=== PATIENT | female | born 1970 | race Asian ===

== ENCOUNTER 2016-08-14 11:43 | Outpatient (CLI) | payer BC | END 2016-08-14 11:44 | disposition home or self-care (01) | DX: Z12.31 Encounter for screening mammogram for malignant neoplasm of breast (principal) ==

== ENCOUNTER 2016-08-21 06:11 | Inpatient (IN) | payer BC ==
[2016-08-21] MEDS ORDERED: ceFAZolin 2 GM/50 ML 50 ML IV ONE (06:26)
[2016-08-21] MEDS ORDERED: LACTATED RINGERS 1,000 ML IV ONE ×6 (06:44→13:51)
[2016-08-21] MEDS ORDERED: BUPIVACAINE 0.25%-EPI 1:200000 PF 30 ML VIAL SUBQ ONE ×5 (08:44)
[2016-08-21] MEDS ORDERED: ceFAZolin 1 GM VIAL IV ONE (09:00)
[2016-08-21] MEDS ORDERED: PROPOFOL 200 MG/20 ML VIAL IVP ONE (09:00)
[2016-08-21] MEDS ORDERED: ACETAMINOPHEN 1,000 MG/100 ML VIAL IV ONE (09:00)
[2016-08-21] MEDS ORDERED: LIDOCAINE-MPF 2% 5 ML VIAL IM ONE (09:00)
[2016-08-21] MEDS ORDERED: ONDANSETRON 4 MG/2 ML VIAL IVP ONE (09:00)
[2016-08-21] MEDS ORDERED: KETOROLAC 30 MG/ML VIAL IVP ONE (09:00)
[2016-08-21] MEDS ORDERED: HYDROmorphone 1 MG/ML SYRINGE IVP ONE (09:00)
[2016-08-21] MEDS ORDERED: FUROSEMIDE 40 MG/4 ML VIAL IVP ONE (09:00)
[2016-08-21] MEDS ORDERED: fentaNYL 250 MCG/5 ML VIAL IVP ONE (09:00)
[2016-08-21] MEDS ORDERED: ROCURONIUM 50 MG/5 ML VIAL IVP ONE (09:00)
[2016-08-21] MEDS ORDERED: MIDAZOLAM 2 MG/2 ML VIAL IVP ONE (09:00)
[2016-08-21] MEDS ORDERED: DEXAMETHASONE 4 MG/ML VIAL IVP ONE (09:00)
[2016-08-21] MEDS ORDERED: ESTROGENS, CONJUGATED CREAM 30 GM TUBE VG ONE (10:29)
[2016-08-21] MEDS ORDERED: oxyCODONE 5 MG TABLET PO PRN (15:11)
[2016-08-21] MEDS ORDERED: ONDANSETRON 4 MG/2 ML VIAL IVP PRN (15:11)
[2016-08-21] MEDS ORDERED: PROMETHAZINE 25 MG/1 ML VIAL ONE (15:37)
[2016-08-21] MEDS: ceFAZolin 1 GM in SODIUM CHLORIDE 0.9% MINIBAG 100 ML IV SCH ×2 (16:59→23:58)
[2016-08-21] MEDS: KETOROLAC 30 MG/ML VIAL IVP SCH ×2 (17:00→22:25)
[2016-08-21] MEDS: LACTATED RINGERS 1,000 ML IV SCH (17:00)
[2016-08-21] MEDS: DOCUSATE SODIUM 100 MG CAPSULE PO SCH (21:13)
[2016-08-21] MEDS: SIMETHICONE CHEW 80 MG TABLET PO SCH (21:13)
[2016-08-22] MEDS: KETOROLAC 30 MG/ML VIAL IVP SCH ×3 (05:43→17:19)
[2016-08-22] MEDS: SIMETHICONE CHEW 80 MG TABLET PO SCH ×2 (05:43→13:07)
[2016-08-22] MEDS: DOCUSATE SODIUM 100 MG CAPSULE PO SCH (08:01)
[2016-08-22] MEDS: ceFAZolin 1 GM in SODIUM CHLORIDE 0.9% MINIBAG 100 ML IV SCH (08:01)
[2016-08-22] MEDS: LACTATED RINGERS 1,000 ML IV SCH (08:14)
[2016-08-22] MEDS ORDERED: diphenhydrAMINE 25 MG CAPSULE PO ONE (11:00)
[2016-08-22] MEDS ORDERED: LIDOCAINE JELLY 2% 5 ML TUBE TOP ONE (12:25)
== END 2016-08-22 18:05 | disposition home or self-care (01) | DRG 743 ==
PROC: 0TSD0ZZ Reposition Urethra, Open Approach (ICD-10-PCS; principal; 2016-08-21 07:30)
PROC: 0TJB8ZZ Inspection of Bladder, Via Natural or Artificial Opening Endoscopic (ICD-10-PCS; principal; 2016-08-21 07:30)
PROC: 0UT7FZZ Resection of Bilateral Fallopian Tubes, Via Natural or Artificial Opening With Percutaneous Endoscopic Assistance (ICD-10-PCS; principal; 2016-08-21 07:30)
PROC: 0UT9FZZ Resection of Uterus, Via Natural or Artificial Opening With Percutaneous Endoscopic Assistance (ICD-10-PCS; principal; 2016-08-21 07:30)
DX: N81.2 Incomplete uterovaginal prolapse (principal); N39.3 Stress incontinence (female) (male); R33.9 Retention of urine, unspecified

== ENCOUNTER 2016-10-02 08:00 | Outpatient (CLI) | payer BC | END 2016-10-02 08:01 | disposition home or self-care (01) | DX: R82.99 Other abnormal findings in urine (principal) ==

== ENCOUNTER 2016-10-08 08:00 | Outpatient (CLI) | payer BC | END 2016-10-08 23:59 | disposition home or self-care (01) | DX: Z48.89 Encounter for other specified surgical aftercare (principal) ==

== ENCOUNTER 2016-10-15 09:41 | Outpatient (CLI) | payer BC | END 2016-10-15 09:42 | disposition home or self-care (01) | DX: I10 Essential (primary) hypertension (principal) ==

== ENCOUNTER 2017-07-24 14:01 | Outpatient (CLI) | payer BC ==
[2017-07-24 13:54] LABS: BASOPHILS % (AUTO) 0.8 %; EOSINOPHILS # (AUTO) 0.1 10^3/uL (0.0-0.7); EOSINOPHILS % (AUTO) 1.7 %; HCT - HEMATOCRIT 41.4 % (37.0-47.0); HGB - HEMOGLOBIN 13.8 g/dL (12.0-16.0); LYMPHOCYTES # (AUTO) 1.1 10^3/uL (1.5-3.5); LYMPHOCYTES % (AUTO) 23.1 %; MEAN CORPUSCULAR HEMOGLOBIN 30.2 pg (27.0-31.0); MEAN CORPUSCULAR HGB CONC 33.2 g/dL (32.0-36.0); MONOCYTES # (AUTO) 0.5 10^3/uL (0.0-1.0); MONOCYTES % (AUTO) 10.7 %; NEUTROPHILS # (AUTO) 3.1 10^3/uL (1.5-6.6); NEUTROPHILS % (AUTO) 63.7 %; NUCLEATED RED BLOOD CELLS AUTO 0.1 /100WBC; RED BLOOD COUNT 4.55 10^6/uL (4.20-5.40); RED CELL DISTRIBUTION WIDTH 12.8 % (12.0-15.0); UNCORRECTED WHITE BLOOD COUNT 4.9 x10^3/uL; WHITE BLOOD COUNT 4.9 x10^3/uL (4.8-10.8)
[2017-07-24 14:36] LABS: ALBUMIN/GLOBULIN RATIO 0.9 (1.0-2.2); BILIRUBIN,TOTAL 0.5 mg/dL (0.2-1.0); BUN - BLOOD UREA NITROGEN 14 mg/dL (6-20); CALCIUM 8.8 mg/dL (8.5-10.3); CARBON DIOXIDE - CO2 28 mmol/L (21-32); CHLORIDE 102 mmol/L (101-111); CHOL/HDL RATIO 3.2 (<4.4); CHOLESTEROL 170 mg/dL; CREATININE 0.5 mg/dL (0.4-1.0); GFR - MDRD 132 (>89); GLUCOSE 97 mg/dL (70-100); HDL CHOLESTEROL 53 mg/dL; LDL/HDL RATIO 1.9 (<4.4); POTASSIUM 3.9 mmol/L (3.5-5.0); SODIUM 138 mmol/L (135-145); TOTAL PROTEIN 7.9 g/dL (6.7-8.2); TRIGLYCERIDES 69 mg/dL; VLDL CHOLESTEROL 14 mg/dL
[2017-07-24 15:18] LABS: HEMOGLOBIN A1C 0.52 g/dL
== END 2017-07-24 14:02 | disposition home or self-care (01) ==
LOC: LAB.WCP 14:01
PROVIDERS: ATTEND Family Medicine
DX: Z00.00 Encounter for general adult medical examination without abnormal findings (principal); R73.01 Impaired fasting glucose
CPT/HCPCS: 36415; 80053; 80061; 83036; 84443; 85025

== ENCOUNTER 2017-08-05 15:00 | Outpatient (CLI) | payer BC ==
[2017-08-05 19:27] LABS: CRP - C-REACTIVE PROTEIN < 1.0 mg/dL (0-1.0)
[2017-08-05 19:28] LABS: RHEUMATOID FACTOR NEGATIVE (Negative); URIC ACID 3.6 mg/dL (2.6-7.2)
== END 2017-08-05 15:01 | disposition home or self-care (01) ==
LOC: LAB.WCP 15:00
PROVIDERS: ATTEND Family Medicine
DX: M25.50 Pain in unspecified joint (principal)
CPT/HCPCS: 36415; 84550; 85651; 86140; 86200; 86430

== ENCOUNTER 2018-07-23 07:00 | Outpatient (CLI) | payer BC ==
[2018-07-23 13:30] LABS: BASOPHILS % (AUTO) 0.4 %; EOSINOPHILS # (AUTO) 0.1 10^3/uL (0.0-0.7); EOSINOPHILS % (AUTO) 2.3 %; HGB - HEMOGLOBIN 13.9 g/dL (12.0-16.0); LYMPHOCYTES # (AUTO) 1.5 10^3/uL (1.5-3.5); LYMPHOCYTES % (AUTO) 29.1 %; MEAN CORPUSCULAR HEMOGLOBIN 31.2 pg (27.0-31.0); MEAN CORPUSCULAR HGB CONC 34.1 g/dL (32.0-36.0); MEAN CORPUSCULAR VOLUME 91.6 fL (81.0-99.0); MEAN PLATELET VOLUME 8.1 fL (7.9-10.8); MONOCYTES # (AUTO) 0.3 10^3/uL (0.0-1.0); NEUTROPHILS # (AUTO) 3.3 10^3/uL (1.5-6.6); NEUTROPHILS % (AUTO) 62.2 %; PLT - PLATELET COUNT 252 10^3/uL (130-450); RED BLOOD COUNT 4.44 10^6/uL (4.20-5.40); RED CELL DISTRIBUTION WIDTH 12.7 % (12.0-15.0); WHITE BLOOD COUNT 5.3 x10^3/uL (4.8-10.8)
[2018-07-23 14:21] LABS: ALBUMIN 3.8 g/dL (3.2-5.5); ALBUMIN/GLOBULIN RATIO 1.1 (1.0-2.2); ALKALINE PHOSPHATASE 48 IU/L (42-121); ALT ALANINE AMINOTRANSFERASE < 10 IU/L (10-60); AST ASPARTATE AMINOTRANSFERASE 15 IU/L (10-42); BILIRUBIN,TOTAL 0.4 mg/dL (0.2-1.0); BUN - BLOOD UREA NITROGEN 13 mg/dL (6-20); CALCIUM 8.4 mg/dL (8.5-10.3); CARBON DIOXIDE - CO2 28 mmol/L (21-32); CHLORIDE 103 mmol/L (101-111); CHOL/HDL RATIO 3.4 (<4.4); CHOLESTEROL 188 mg/dL; CREATININE 0.5 mg/dL (0.4-1.0); GFR - MDRD 131 (>89); GLUCOSE 91 mg/dL (70-100); HDL CHOLESTEROL 55 mg/dL; LDL CHOLESTEROL,CALCULATED 123 mg/dL; LDL/HDL RATIO 2.2 (<4.4); SODIUM 138 mmol/L (135-145); TOTAL PROTEIN 7.2 g/dL (6.7-8.2); VLDL CHOLESTEROL 10 mg/dL
[2018-07-23 16:44] LABS: HB2 TOTAL 14.9 g/dL; HEMOGLOBIN A1C 0.52 g/dL; HEMOGLOBIN A1C % 5.3 % (4.6-6.2)
== END 2018-07-23 23:59 | disposition home or self-care (01) ==
LOC: LAB.WCP 07:00
PROVIDERS: ATTEND Family Medicine
DX: Z00.00 Encounter for general adult medical examination without abnormal findings (principal); R73.01 Impaired fasting glucose
CPT/HCPCS: 36415; 80053; 80061; 83036; 83721; 84443; 85025

== ENCOUNTER 2019-05-19 11:58 | Outpatient (CLI) | payer BC ==
--- NOTE | 2019-05-19 15:01 | Mammography Report ---
Reason: LUMP IN RIGHT BREAST SUBAREOLAR Procedure Date: 05/19/2019 Accession Number: [id number] / [id number] Procedure: SONYA - Diagnostic Dig Bilat CPT Code: FULL RESULT: EXAM: Diagnostic Dig Bilat DATE: 05/19/2019 1:19 PM CLINICAL HISTORY: Diagnostic examination. Palpable lump in the right breast. TECHNIQUE: (B) - Bilateral CC, laterally exaggerated CC, MLO views were obtained. Right spot CC and spot MLO as well as ML images are obtained. Focused right breast ultrasound is performed. COMPARISON: 08/14/2016 through 07/24/2010. PARENCHYMAL PATTERN: (D) - The breast(s) demonstrate(s) heterogeneously dense fibroglandular parenchyma. FINDINGS: The right breast again demonstrates multiple partially obscured well demarcated isolated masses which appear isodense, the largest of these lumps in the retroareolar region of the right breast corresponds to the palpable marker. Focused right breast ultrasound of the retroareolar region is performed which demonstrates a wider than tall simple appearing cyst which measures 2.5 x 1.4 x 2.1 cm at the 10:00 position 3 cm from the nipple, typically benign. There are no suspicious masses, calcifications, or areas of distortion. IMPRESSION: Benign findings. BI-RADS category 2. RECOMMENDATION: (ANNUAL) - Recommend routine annual screening mammography. BI-RADS CATEGORY: (2) - Benign Findings. STANDARD QUALIFYING STATEMENTS: 1. This examination was not reviewed with the aid of Computer-Aided Detection (CAD). 2. A negative or benign imaging report should not preclude biopsy if clinically suspicious findings are present. 3. Dense breasts may obscure an underlying neoplasm. 4. This examination was reviewed with the aid of 3D breast imaging (tomosynthesis).
== END 2019-05-19 11:59 | disposition home or self-care (01) ==
LOC: DI 11:58
PROVIDERS: ATTEND Family Medicine
DX: N63.41 Unspecified lump in right breast, subareolar (principal); N60.01 Solitary cyst of right breast
CPT/HCPCS: 76642; 77066

== ENCOUNTER 2019-08-11 07:54 | Outpatient (CLI) | payer BC ==
[2019-08-11 12:46] LABS: BASOPHILS % (AUTO) 0.5 %; EOSINOPHILS # (AUTO) 0.1 10^3/uL (0.0-0.7); EOSINOPHILS % (AUTO) 2.9 %; HGB - HEMOGLOBIN 13.5 g/dL (12.0-16.0); LYMPHOCYTES # (AUTO) 1.3 10^3/uL (1.5-3.5); LYMPHOCYTES % (AUTO) 32.4 %; MEAN CORPUSCULAR HGB CONC 32.8 g/dL (32.0-36.0); MEAN CORPUSCULAR VOLUME 91.6 fL (81.0-99.0); MEAN PLATELET VOLUME 10.1 fL (7.9-10.8); MONOCYTES # (AUTO) 0.3 10^3/uL (0.0-1.0); MONOCYTES % (AUTO) 7.3 %; NEUTROPHILS # (AUTO) 2.3 10^3/uL (1.5-6.6); NEUTROPHILS % (AUTO) 56.7 %; PLT - PLATELET COUNT 265 10^3/uL (130-450); RED CELL DISTRIBUTION WIDTH 12.3 % (12.0-15.0); WHITE BLOOD COUNT 4.1 x10^3/uL (4.8-10.8)
[2019-08-11 12:56] LABS: ALBUMIN 3.9 g/dL (3.2-5.5); ALBUMIN/GLOBULIN RATIO 1.3 (1.0-2.2); ALKALINE PHOSPHATASE 64 IU/L (42-121); ALT ALANINE AMINOTRANSFERASE < 10 IU/L (10-60); AST ASPARTATE AMINOTRANSFERASE 16 IU/L (10-42); BILIRUBIN,TOTAL 0.9 mg/dL (0.2-1.0); BUN - BLOOD UREA NITROGEN 14 mg/dL (6-20); CALCIUM 8.6 mg/dL (8.5-10.3); CARBON DIOXIDE - CO2 29 mmol/L (21-32); CHLORIDE 104 mmol/L (101-111); CHOL/HDL RATIO 3.3 (<4.4); CHOLESTEROL 197 mg/dL; CREATININE 0.4 mg/dL (0.4-1.0); GFR - MDRD 168 (>89); GLUCOSE 91 mg/dL (70-100); HDL CHOLESTEROL 59 mg/dL; LDL CHOLESTEROL,CALCULATED 124 mg/dL; LDL/HDL RATIO 2.1 (<4.4); SODIUM 139 mmol/L (135-145); TOTAL PROTEIN 6.9 g/dL (6.7-8.2); VLDL CHOLESTEROL 14 mg/dL
[2019-08-11 13:52] LABS: HB2 TOTAL 13.7 g/dL; HEMOGLOBIN A1C 0.53 g/dL; HEMOGLOBIN A1C % 5.7 % (4.6-6.2)
== END 2019-08-11 23:59 | disposition home or self-care (01) ==
LOC: LAB.WCP 07:54
PROVIDERS: ATTEND Family Medicine
DX: L50.8 Other urticaria (principal); R42 Dizziness and giddiness; R73.01 Impaired fasting glucose; G47.00 Insomnia, unspecified
CPT/HCPCS: 36415; 80053; 80061; 83036; 83721; 84443; 85025

== ENCOUNTER 2021-04-05 07:31 | Outpatient (CLI) | payer BC ==
[2021-04-05 11:42] LABS: BASOPHILS % (AUTO) 0.7 %; EOSINOPHILS # (AUTO) 0.1 10^3/uL (0.0-0.7); EOSINOPHILS % (AUTO) 3.2 %; HCT - HEMATOCRIT 44.5 % (37.0-47.0); HGB - HEMOGLOBIN 14.5 g/dL (12.0-16.0); LYMPHOCYTES # (AUTO) 1.6 10^3/uL (1.5-3.5); MEAN CORPUSCULAR HGB CONC 32.6 g/dL (32.0-36.0); MEAN CORPUSCULAR VOLUME 91.9 fL (81.0-99.0); MEAN PLATELET VOLUME 11.1 fL (7.9-10.8); MONOCYTES # (AUTO) 0.5 10^3/uL (0.0-1.0); MONOCYTES % (AUTO) 12.3 %; NEUTROPHILS % (AUTO) 45.6 %; PLT - PLATELET COUNT 237 10^3/uL (130-450); RED BLOOD COUNT 4.84 10^6/uL (4.20-5.40); RED CELL DISTRIBUTION WIDTH 12.5 % (12.0-15.0); WHITE BLOOD COUNT 4.3 x10^3/uL (4.8-10.8)
[2021-04-05 12:28] LABS: ALBUMIN 4.2 g/dL (3.2-5.5); ALBUMIN/GLOBULIN RATIO 1.2 (1.0-2.2); ALKALINE PHOSPHATASE 57 IU/L (42-121); ALT ALANINE AMINOTRANSFERASE 10 IU/L (10-60); AST ASPARTATE AMINOTRANSFERASE 18 IU/L (10-42); BILIRUBIN,TOTAL 0.8 mg/dL (0.2-1.0); BUN - BLOOD UREA NITROGEN 13 mg/dL (6-20); CALCIUM 9.4 mg/dL (8.5-10.3); CARBON DIOXIDE - CO2 29 mmol/L (21-32); CHLORIDE 100 mmol/L (101-111); CHOL/HDL RATIO 3.9 (<4.4); CHOLESTEROL 214 mg/dL; CREATININE 0.5 mg/dL (0.4-1.0); GFR - MDRD 130 (>89); GLUCOSE 103 mg/dL (70-100); HDL CHOLESTEROL 55 mg/dL; LDL CHOLESTEROL,CALCULATED 146 mg/dL; LDL/HDL RATIO 2.7 (<4.4); POTASSIUM 4.2 mmol/L (3.5-5.0); SODIUM 139 mmol/L (135-145); TOTAL PROTEIN 7.7 g/dL (6.7-8.2); TRIGLYCERIDES 66 mg/dL; VLDL CHOLESTEROL 13 mg/dL
[2021-04-05 12:57] LABS: THYROID STIMULATING HORMONE 2.11 uIU/mL (0.34-5.60)
== END 2021-04-05 23:59 | disposition home or self-care (01) ==
LOC: LAB.WCP 07:31
PROVIDERS: ATTEND Family Medicine
DX: Z00.00 Encounter for general adult medical examination without abnormal findings (principal); Z13.220 Encounter for screening for lipoid disorders; Z13.29 Encounter for screening for other suspected endocrine disorder
CPT/HCPCS: 36415; 80053; 80061; 83721; 84443; 85025

== ENCOUNTER 2021-04-23 08:00 | Outpatient (CLI) | payer BC ==
[2021-04-23 18:33] LABS: FECAL OCCULT BLOOD (FIT) NEGATIVE (NEGATIVE)
== END 2021-04-23 23:59 | disposition home or self-care (01) ==
LOC: LAB 08:00
PROVIDERS: ATTEND Family Medicine
DX: Z12.11 Encounter for screening for malignant neoplasm of colon (principal)
CPT/HCPCS: 82274

== ENCOUNTER 2021-05-24 12:34 | Outpatient (CLI) | payer BC ==
--- NOTE | 2021-05-24 14:17 | Ultrasound Report ---
PROCEDURE: Head or Neck Soft Tissue INDICATIONS: THYROID NODULE TECHNIQUE: Real-time scanning was performed of the thyroid gland, with image documentation. COMPARISON: None FINDINGS: Right: Thyroid lobe measures 5.3 x 1.1 x 1.3 cm, and is relatively homogeneous in echotexture, with a single focal nodule. Left: Thyroid lobe measures 4.3 x 1.0 x 1.4 cm, and is relatively homogenous in echotexture without focal nodule. Isthmus: 2.6 mm thick. Nodule number: 1 Location: Right lower pole Size: 0.8 x 0.5 x 0.4 cm. Composition: Solid Echogenicity: Hypoechoic Shape: wider than tall. Margins: Smooth Echogenic foci: None Total points: 4 ACR TI-RADS category: Moderately suspicious IMPRESSION: There is a single moderately suspicious thyroid nodule measuring 0.[address]ame ter. Based on recommendations below, no further follow-up is suggested at the current time. ACR TI-RADS definitions and recommendations: TI-RADS 1 (benign): 0 points. FNA not needed. TI-RADS 2 (not suspicious): 2 points. FNA not needed. TI-RADS 3 (mildly suspicious): 3 points. "FNA if 2.5 cm or larger, follow up if 1.5 cm or larger (at 1, 3, and 5 years). TI-RADS 4 (moderately suspicious): 4-6 points. "FNA if 1.5 cm or larger, follow up if 1 cm or larger (at 1, 2, 3, and 5 years). TI-RADS 5 (highly suspicious): 7 points or more. "FNA if 1 cm or larger, follow up if 0.5 cm or larger (every year for 5 years). Reviewed by: Valente Bradford MD on 05/24/2021 2:15 PM PDT Approved by: Valente Bradford MD on 05/24/2021 2:15 PM PDT Station ID: [id number]
== END 2021-05-24 12:35 | disposition home or self-care (01) ==
LOC: DI 12:34
PROVIDERS: ATTEND Family Medicine
DX: E04.1 Nontoxic single thyroid nodule (principal)

== ENCOUNTER 2022-04-23 10:00 | Outpatient (CLI) | payer BC ==
[2022-04-23 18:27] LABS: FECAL OCCULT BLOOD (FIT) NEGATIVE (NEGATIVE)
== END 2022-04-23 23:59 | disposition home or self-care (01) ==
LOC: LAB.N 10:00
PROVIDERS: ATTEND Nurse Practitioner
DX: Z12.11 Encounter for screening for malignant neoplasm of colon (principal)
CPT/HCPCS: 82274

== ENCOUNTER 2022-06-26 07:59 | Outpatient (CLI) | payer BC ==
--- NOTE | 2022-07-01 10:56 | Mammography Report ---
UNILATERAL LEFT DIGITAL DIAGNOSTIC MAMMOGRAM 3D/2D WITH SPOT COMPRESSION: 06/26/2022 CLINICAL: Patient returns today to evaluate a focal asymmetry in the left breast. Comparison is made to exams dated: 05/17/2022 mammogram, 05/19/2019 mammogram - [facility], 08/14/2016 mammogram - [facility], 02/28/2015 mammogram, and 06/03/2013 m ammogram - [facility]. The left breast is extremely dense, which lowers the sensitivity of mammography (category d />75% gla ndular tissue). There is an asymmetry with rim calcifications in the left breast at 7 o'clock anterior depth. This i s seen in additional views. No other significant masses or calcifications are seen in the breast. IMPRESSION: BENIGN The asymmetry in the left breast is consistent with an oil cyst and is benign. There is no mammographic evidence of malignancy. Return to annual mammogram screening schedule is rec ommended. Based on Tyrer-Cuzick model (a risk assessment model), the patient's lifetime risk is 21.1% and her 1 0 year risk is 6.0%. If a patient has an elevated risk, a more comprehensive evaluation should be con sidered and/or a referral to a genetic counselor. The [place] [employer], [place] [employer], and NCCN Guidelines advise the consideration of Breast MRI as an adjunct to screening mammog yoly in patients whose "Lifetime risk to develop breast cancer" is 20% or higher. This exam was interpreted at Station ID: [id number]. NOTE: For mammograms, a report in lay terms will be sent to the patient. Approximately 15% of breast malignancies will not be visualized mammographically. In the management of a palpable breast mass, a negative mammogram must not discourage biopsy of a clinically suspicious lesion. Electronically Signed By: Annemarie neal/:06/26/2022 11:35:48 ACR BI-RADS Category 2: Benign Finding(s) 3342F PARENCHYMAL PATTERN: (VD) - The breast(s) demonstrate(s) extremely dense parenchyma, limiting the sen sitivity of mammography. BI-RADS CATEGORY: (2) - 2 Mammogram [id number] return to screening LATERALITY: (B)
== END 2022-06-26 08:00 | disposition home or self-care (01) ==
LOC: DI 07:59
PROVIDERS: ATTEND Nurse Practitioner
DX: R92.8 Other abnormal and inconclusive findings on diagnostic imaging of breast (principal)

== ENCOUNTER 2023-07-30 08:00 | Outpatient (CLI) | payer BC ==
[2023-07-30 18:51] LABS: FECAL OCCULT BLOOD (FIT) NEGATIVE (NEGATIVE)
== END 2023-07-30 23:59 | disposition home or self-care (01) ==
LOC: LAB.R 08:00
PROVIDERS: ATTEND Nurse Practitioner
DX: Z12.11 Encounter for screening for malignant neoplasm of colon (principal)
CPT/HCPCS: 82274

== ENCOUNTER 2023-09-23 12:51 | Outpatient (CLI) | payer BC ==
--- NOTE | 2023-09-23 13:26 | Sleep Patient Instructions ---
Sleep Center Visit Summary - Patient Visit Information Reason for Visit: Initial consult for evaluation of sleep disordered breathing and other sleep issues. - Patient Instructions Instructions Attached: Sleep Study, Sleep Study Home Monitor Additional Instructions: You will be completing a sleep study, either an in-lab polysomnography (PSG) or home sleep study (HST). You will follow-up in the sleep care office after the sleep study is completed to hear the results and talk about therapy, if needed. You will be called by our office staff to schedule this appointment, but you may contact us with any questions. - Clinic Information Contact: [facility] [address] [place] [id number] [email or web address] T: [phone]
--- NOTE | 2023-09-23 13:34 | SLEEP CARE CONSULTATION ---
Information from patient questionnaire entered by Charlie Mercado. I have reviewed and concur with the information entered by Charlie Mercado. This document represents the service I personally performed and the decisions made by me, Brittnee Leonard ARNP. History of Present Illness Service Date and Time: 09/23/2023 1251 Reason for Visit: New patient Chief Complaint: reports: Insomnia, Frequent awakenings at night Date of Onset: 15YRS Usual bedtime: 11PM Time it takes to fall asleep: 2HRS Snores at night: No Observed to quit breathing while asleep: No Sleeps alone due to snoring: No Number of times waking at night: 1 or more, sometimes does not sleep at all Reasons for waking at night: reports: Bathroom, Other (UNKNOWN). denies: Choking, Snoring, Gasping for air Toss, Turn, or Twitch while sleeping: Yes Recalls having dreams: No Usually gets out of bed at: 6AM Feels refreshed in the morning: No Morning headache: No Sleepy or fatigued during the day: Yes Ever fallen asleep while driving: No Takes day naps: No Dreams during day naps: No Prior sleep studies: No Additional HPI information: I had the pleasure of seeing JOSH GUPTA today regarding the possibility of her having a sleep disorder. She says Lithuanian is a second language but she feels she can understand it without need of an computer numeric control setter. She declined interpreting services. Her current complaints are frequent night awakenings and insomnia. She says she sometimes cannot sleep at all at night and this has been going on for 8-10 years at least. She can take an hour or so sometimes to go to sleep. She will then wake up for bathroom or other unknown reasons and sometimes she just lays in bed and cannot go back to sleep. She says her blood pressure has been being higher when she cannot sleep much at night. She is not currently being treated for hypertension. She says she did try a sleeping pill her doctor prescribed her but said it did not help her sleep. She has tried melatonin and it did not help her fall asleep more quickly either. She drinks sleepy tea but this also does not help. She does not wake up feeling refreshed and has some tiredness during the day. She does not take naps and states that no one has told her that she snores or has positive breathing in her sleep. - Parasomnia Symptoms Ever been unable to move upon waking from sleep: No Walks in sleep: No Talks in sleep: No Ever acted out dreams in sleep: No Ever felt weak in the knees when startled or emotional: No Bothered by creepy, crawly, restless sensations in legs: No Problems with memory or concentration: No Subjective Initial Erie Sleepiness Scale score: 10 (09/21/23) Past Medical History Past Medical History: reports: Other (BP going up and down but not on any medications; no other significant medical history) Social History The patient's occupation is a [employer]. Patient is and lives in [place]. Have you smoked in the past 12 months: No Alcohol use: No Caffeine use: Yes Caffeine amount and frequency: 2 A WEEK Family History Family history of sleep disordered breathing: No Allergies and Home Medications Known drug allergies: No Drug allergies reviewed: Yes Home medication list reviewed: Yes Allergy and home medication list: Allergies No Known Drug Allergies Allergy (Verified 09/18/23 17:08) Review of Systems Cardiovascular: reports: high blood pressure Gastrointestinal: denies: heartburn Neurological: denies: headaches Psychiatric: denies: anxiety, depression Ear/Nose/Throat: denies: tonsillectomy Endocrine: denies: thyroid disease Physical Exam Vital signs obtained and entered by: CHARLIE Simms MA Blood Pressure: 135/90 (RIGHT ARM) Cuff size: regular Heart Rate: 77 O2 Saturation: 99 Height: 4 ft 11.5 in Weight: 121 lb 3.2 oz Body Mass Index: 24.0 BMI Classification: Normal Neck circumference: 12 Mouth and throat: narrow oropharynx Soft palate: long Hard palate: normal Uvula: normal Uvula visualization: 25% Mallampati Class III Tongue: normal in size Tonsils: 1+ Neck: normal w/o lymphadenopathy or thyromegaly Heart: regular rate and rhythm Lungs: clear bilaterally Impression and Plan 1. Suspected Obstructive Sleep Apnea-Hypopnea Syndrome, as suggested by a history of frequent awakening during the night, unrefreshed sleep and insomnia. Narrow oropharynx and obesity are common predisposing factors for obstructive sleep apnea-hypopnea syndrome. I recommend proceeding to polysomnography to confirm the diagnosis and to assess severity. If the patient has significant sleep disordered breathing, a manual CPAP titration study will also be performed to find the optimal treatment pressure. I informed the patient of what the sleep studies involve and after some discussion, obtained agreement to proceed. The pathophysiology of obstructive sleep apnea-hypopnea syndrome was discussed with the patient and health risks of cardiovascular and cerebrovascular disease if not treated. Risks of drowsy driving discussed in detail and patient advised to avoid long distance driving and to sinker puller at the first sign of drowsiness. Patient agreed to plan. * Schedule polysomnography +- manual CPAP titration study and return in 1-2 w eeks after the study to discuss result and initiate therapy. * Avoid long distance driving or driving when feeling sleepy. * Avoid alcohol, sedative and muscle relaxant around bedtime. * Review instructions provided by trained office staff on how to prepare for the sleep study. * Return for follow-up after sleep study completed. Plan: PSG/HST Visit Type: In Office Time Spent with Patient (minutes): 30 Provider Statement: I spent 100% of the Face to Face Visit with the patient with greater than 50% spent counseling the patient and coordination of care.
[2023-09-23 13:35] VITALS: BP 135/90; O2SAT 99
== END 2023-09-23 12:52 | disposition home or self-care (01) ==
LOC: SC 12:51
PROVIDERS: ATTEND Nurse Practitioner Family
DX: R40.0 Somnolence (principal); G47.00 Insomnia, unspecified; G47.8 Other sleep disorders
CPT/HCPCS: 99203; 99212

== ENCOUNTER 2023-11-07 13:58 | Outpatient (CLI) | payer BC | END 2023-11-07 13:59 | disposition home or self-care (01) | LOC: SC 13:58 | PROVIDERS: ATTEND Nurse Practitioner Family | DX: G47.33 Obstructive sleep apnea (adult) (pediatric) (principal); R09.02 Hypoxemia | CPT/HCPCS: 95806 ==

== ENCOUNTER 2023-12-04 13:26 | Outpatient (CLI) | payer BC ==
--- NOTE | 2023-12-04 13:58 | Sleep Patient Instructions ---
Sleep Center Visit Summary - Patient Visit Information Reason for Visit: Sleep study follow-up - Patient Instructions Additional Instructions: You do have mild obstructive sleep apnea but are declining treatment options at this time. Please maintain a healthy weight and follow up with your primary provider as needed. Please call office to schedule a follow up appointment in the sleep care office if you need further assistance. - Clinic Information Contact: [facility] [address] [place] [address] [email or web address] T: [phone]
--- NOTE | 2023-12-04 14:12 | SLEEP CARE CONSULTATION ---
Information from patient questionnaire entered by Cinthia Mercado. I have reviewed and concur with the information entered by Cinthia Mercado. This document represents the service I personally performed and the decisions made by , Brittnee Leonard ARNP. History of Present Illness Service Date and Time: 12/04/2023 1326 Initial Abbot Sleepiness Scale score: 10 (09/21/23) Current Abbot Sleepiness Scale score: 7 (12/04/23) Additional HPI information: JOSH GUPTA returns for follow up and results of the recently performed home sleep study. The sleep study showed mild obstructive sleep apnea with an average AHI of 8.8 and chalino oxygen saturation of 87%. I explained the pathophysiology behind obstructive sleep apnea. We then spent quite a bit of time discussing different treatment options. For mild obstructive sleep apnea, surgery and oral appliance are alternatives to nasal CPAP therapy but in moderate or severe cases, nasal CPAP is the most effective and reliable treatment. After some discussion, the patient opted to not treat her sleep apnea at this time. Patient does not drink alcohol. Patient denies drowsy driving. Sleep Study - Results Type of Sleep Study: Home sleep study (COMPLETED 11/07/23) Prior sleep studies: No Polysomnography/Home Sleep Study results: Physician Impression: The quality of the study is good. The length of the study is adequate (> 240 minutes). Please also see the tabulated and graphic data. 1. Obstructive Sleep Apnea-Hypopnea (ICD-10 G47.33), mild, with an AHI of 8.8/hr and chalino SaO2 of 87%. During the study, the patient had 35 apneas (35 obstructive, 0 central, 0 mixed) and 29 hypopneas. The longest episode lasted 108.0 seconds. The patient only slept supine during this study (supine AHI was 8.8 and non-supine, 0.00). 2. Hypoxemia (ICD-10 R09.02), minimal, with the lowest oxygen saturation of 87 % and 0.5 minutes with SaO2 under 90%. Baseline oxygen saturation was normal (Average oxygen saturation was 93%). Allergies and Home Medications Known drug allergies: No Drug allergies reviewed: Yes Home medication list reviewed: Yes (no changes) Allergy and home medication list: Allergies No Known Drug Allergies Allergy (Verified 12/02/23 10:16) Review of Systems Review of systems same as previous: Yes (no changes) Physical Exam Vital signs obtained and entered by: CINTHIA Simms MA Blood Pressure: 140/97 (LEFT ARM) Cuff size: regular Heart Rate: 75 O2 Saturation: 95 Height: 4 ft 11.5 in Weight: 118 lb 3.2 oz Body Mass Index: 23.4 BMI Classification: Normal Impression and Plan 1. Obstructive Sleep Apnea-Hypopnea Syndrome, mild, with lowest oxygen saturation of 87%. I reviewed with patient that she has mild sleep apnea when on her back and that she may choose to treat it. She did not sleep on non-supine during night of HST. I went over different options for treating her sleep apnea including an oral appliance, CPAP and surgical options but she declined doing any form of therapy at this time. She does not feel she could tolerate anything in her mouth or on her face when she is sleeping. She does not want to have any surgeries. She does not feel there is a problem right now and will come back if she thinks her symptoms have gotten worse or decides to start therapy. She can follow up on an as needed basis. 2. Hypoxemia, minimal, with a chalino oxygen saturation of 87% and 0.5 minutes spent under 90%. The baseline oxygen saturation was normal with an average oxygen saturation of 93%. * Patient does not want any treatment of her mild GILBERTO at this time. * She was advised to maintain healthy weight. * She may follow up on an as needed basis for further concerns or worsening symptoms. Counseling Topics: Weight control Follow up with Sleep Care in: as needed Visit Type: In Office Time Spent with Patient (minutes): 16 Provider Statement: I spent 100% of the Face to Face Visit with the patient with greater than 50% spent counseling the patient and coordination of care.
[2023-12-04 14:16] VITALS: BP 140/97; O2SAT 95
== END 2023-12-04 13:27 | disposition home or self-care (01) ==
LOC: SC 13:26
PROVIDERS: ATTEND Nurse Practitioner Family
DX: G47.33 Obstructive sleep apnea (adult) (pediatric) (principal); R09.02 Hypoxemia
CPT/HCPCS: 99212; 99213